=== PATIENT | female | born 1970 | race Two or more races ===

== ENCOUNTER 2021-12-08 15:21 | Emergency (ER) | payer OTHER ==
[~2021-12-08] VITALS: Ht 162.6 cm; Wt 83.9 kg
[2021-12-08] MEDS ORDERED: LOTREL 10-40 M1 EACH PO (15:29)
[2021-12-08] MEDS ORDERED: CYCLOBENZAPRINE10 MG PO (17:09)
[2021-12-08] MEDS ORDERED: NORFLEX100MG PO (17:09)
[2021-12-08] MEDS ORDERED: DOLOGESIC 500-1 EACH PO (17:12)
== END 2021-12-08 18:06 | disposition home or self-care (01) ==
LOC: ER 15:21
DX: M79.651 Pain in right thigh (principal); M79.661 Pain in right lower leg

== ENCOUNTER 2022-03-01 17:55 | Emergency (ER) | payer OTHER ==
[~2022-03-01] VITALS: Ht 157.5 cm; Wt 70.3 kg
[~2022-03-01 17:55] MED LIST: CYCLOBENZAPRINE10 MG PO; DOLOGESIC 500-1 EACH PO; LOTREL 10-40 M1 EACH PO; NORFLEX100MG PO
[2022-03-01] MEDS ORDERED: IVERMECTIN3 MG PO (18:24)
[2022-03-01] MEDS ORDERED: PERMETHRIN60 GM TOP (18:24)
== END 2022-03-01 18:32 | disposition home or self-care (01) ==
LOC: ER 17:55
DX: B86 Scabies (principal)

== ENCOUNTER 2023-09-22 09:01 | Emergency (ER) | payer OTHER ==
[~2023-09-22] VITALS: Ht 162.6 cm; Wt 76.2 kg
[~2023-09-22 09:01] MED LIST changes: +IVERMECTIN3 MG PO; +PERMETHRIN60 GM TOP
== END 2023-09-22 12:38 | disposition home or self-care (01) ==
LOC: ER 09:01
DX: M62.838 Other muscle spasm (principal)